=== PATIENT | male | born 1980 | race Caucasian/White ===

== ENCOUNTER 2017-06-08 18:48 | Emergency (ER) | payer OTHER, SELFPAY ==
[2017-06-08 18:49] VITALS: BP 143/86; PULSE 86; RESP 14; TEMP 36.8; O2SAT 98; BMI 30.4
[2017-06-08 18:54] VITALS: BP 143/86; PULSE 81; RESP 14; O2SAT 100
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
[2017-06-08 19:06] LABS: Absolute Lymphocyte Count 4.27 X10^3/ul (0.83-4.51); Absolute Neutrophil Count 5.7 X10^3/uL (2.0-7.7); Basophil# 0.01 X10^3/uL; Basophil% 0.1 % (0-1); Eosinophil# 0.15 X10^3/uL; Eosinophils% 1.4 % (0-5); Hematocrit 39.4 % (40-54); Hemoglobin 14.2 g/dl (13.0-16.5); Lymphocyte # 4.27 X10^3/ul (4.0); Mean Corpuscular Hgb 30.7 pg (27.0-32.0); Mean Corpuscular Volume 85.1 fL (80-94); Mean Platelet Vol. 9.9 fl (6.2-12.0); Monocyte# 0.51 X10^3/uL; Monocyte% 4.8 % (0-10); Neutrophil % 53.4 % (47-70); Platelet Count 207 K/mm3 (150-450); RBC Distribution Width CV 12.6 % (11.6-14.6); RBC Distribution Width SD 38.5 fl (35.1-43.9); Red Blood Count 4.63 M/mm3 (4.6-6.2); White Blood Count 10.7 K/mm3 (4.4-11.0)
[2017-06-08 19:07] LABS: POSITIVE COUNT NO; POSITIVE DIFFERENTIAL NO; POSITIVE MORPHOLOGY NO
[2017-06-08 19:14] LABS: Partial Thromboplast Time 22.4 Seconds (24.1-36.2); Prothrombin Time (Protime)PT. 13.2 SECONDS (11.7-14.9)
[2017-06-08] MEDS: Cefazolin 2 GM in 0.9% Normal Saline 100 ML IV (19:18)
[2017-06-08] MEDS: morphine 10 MG/ML Syringe IV (19:18)
[2017-06-08] MEDS: 0.9% Normal Saline 1,000 ML 150 ML IV (19:18)
[2017-06-08] MEDS: 0.9% Normal Saline 1,000 ML 1000 ML IV (19:18)
[2017-06-08] MEDS: Diphth,Pertuss(Acell),Tet Vac 0.5 ML Vial IM (19:19)
[2017-06-08 19:24] VITALS: BP 152/90; PULSE 73; RESP 16; O2SAT 100
[2017-06-08 19:27] VITALS: BP 152/92; PULSE 78; RESP 19; O2SAT 100
[2017-06-08 19:28] VITALS: BP 152/92; PULSE 78; RESP 17; O2SAT 100
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
[2017-06-08 19:55] LABS: AST(SGOT) 26 U/L (15-37); Alanine Aminotransfer ALT/SGPT 32 U/L (16-61); Albumin, Serum 3.5 g/dL (3.2-5.0); Alkaline Phosphatase 52 U/L (45-117); Anion Gap 16 (5-15); BUN 17 mg/dL (7-18); BUN/Creat Ratio 14.8 RATIO (10-20); Calcium,Total 8.1 mg/dL (8.5-10.1); Chloride 108 mmol/L (98-107); Creatinine, Serum 1.15 mg/dL (0.70-1.30); EST Glomerular Filtration Rate 77 mL/min (>60); Est Glom Filt Rate - Afr Amer 93 mL/min (>60); Estimated Creatinine Clearance 104.24 ml/min; Globulin 3.4 g/dL (2.2-4.2); Glucose 181 mg/dL (74-106); Potassium 3.1 mmol/L (3.5-5.1); Protein, Total 6.9 g/dL (6.4-8.2); Sodium Level 141 mmol/L (136-145)
[2017-06-08] MEDS: Propofol 200 MG/20 ML Vial 250 MG IV BOLUS (20:02)
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
== END 2017-06-08 20:12 | disposition short-term general hospital (02) ==
PROVIDERS: Emergency Provider Emergency Medicine; Family Provider Family Medicine; PCP Family Medicine
DX: S42.352B Displaced comminuted fracture of shaft of humerus, left arm, initial encounter for open fracture (principal); V86.59XA Driver of other special all-terrain or other off-road motor vehicle injured in nontraffic accident, initial encounter; Y93.9 Activity, unspecified; Y92.9 Unspecified place or not applicable
CPT/HCPCS: 24505; 31500; 71045; 72170; 73060; 80053; 80320; 85025; 85610; 85730; 90715; 96365; 96375; 99251; 99285; J7030; A4216; G0463; G0480

== ENCOUNTER 2017-06-30 01:11 | Emergency (ER) | payer OTHER, SELFPAY ==
[2017-06-30 01:14] VITALS: BP 113/64; PULSE 110; RESP 29; TEMP 37.5; O2SAT 100; BMI 27.6
[2017-06-30 01:29] VITALS: BP 112/74; PULSE 88; RESP 12; O2SAT 93
[2017-06-30] MEDS: morphine 8 MG/ML Syringe 6 MG IV (01:30)
[2017-06-30] MEDS: Ondansetron 4 MG/2 ML Vial IV (01:30)
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
--- NOTE | 2017-06-30 01:42 | NURSING ---
guillaume called right away to take the pt to [facility] where he had his surgery with his aterial grafts. called the ER to give report and they made the doctor who did his surgery aware.
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
--- NOTE | 2017-06-30 01:44 | NURSING ---
pt now leaving to go to [facility]. the pt bleeding was controlled, tourniquet removed and bleeding contained with ABDS and kate wraps.
--- NOTE | 2017-06-30 02:40 | NURSING ---
pt left by squad at 01:49
== END 2017-06-30 01:50 | disposition short-term general hospital (02) ==
PROVIDERS: Emergency Provider Emergency Medicine; Family Provider Family Medicine; PCP Family Medicine
DX: R58 Hemorrhage, not elsewhere classified (principal); S41.102D Unspecified open wound of left upper arm, subsequent encounter; S42.302D Unspecified fracture of shaft of humerus, left arm, subsequent encounter for fracture with routine healing; V86.59XD Driver of other special all-terrain or other off-road motor vehicle injured in nontraffic accident, subsequent encounter; Z95.828 Presence of other vascular implants and grafts
CPT/HCPCS: 96374; 96375; 99283; J7030; J2405